=== PATIENT | male | born 1980 | race African-American/Black ===

== ENCOUNTER 2020-06-07 19:49 | Emergency (ER) | payer SELFPAY ==
[2020-06-08 19:27] LABS: SARS-CoV-2 PCR by NAA Not Detected (NotDetected)
== END 2020-06-07 20:06 ==
LOC: MADERS 19:49
DX: Z20.822 Contact with and (suspected) exposure to COVID-19 (principal)
CPT/HCPCS: 87635; 99283; U0003; U0005